=== PATIENT | male | born 1995 | race Caucasian/White ===

== ENCOUNTER 2018-09-20 21:08 | Emergency (ER) | payer OTHER ==
[2018-09-20] MEDS ORDERED: NS 1,000 ML IV ONE ×2 (21:30→23:00)
[2018-09-20] MEDS ORDERED: MORPHINE 2 MG/ML 1ML SYRINGE (J2270) IV PRN (21:30)
[2018-09-20 21:47] LABS: BASO % 0.5 % (0.0-1.0); EOS # 0.2 10^3/uL (0.0-0.50); EOS % 2.4 % (0.0-3.0); HEMATOCRIT 47.3 % (42.0-52.0); HEMOGLOBIN 16.8 g/dl (13.5-17.5); LYMPH # 2.5 10^3/uL (1.5-6.5); LYMPH % 34.5 % (24.0-44.0); MEAN CORPUSCULAR HEMOGLOBIN 30.9 pg (27.0-33.0); MEAN CORPUSCULAR HGB CONC 35.5 g/dl (32.0-36.5); MEAN CORPUSCULAR VOLUME 87.1 fl (80.0-96.0); MONO # 0.5 10^3/uL (0.0-0.8); MONO % 7.1 % (0.0-5.0); NEUTROPHILS # 4.1 10^3/uL (1.8-7.7); NEUTROPHILS % 55.2 % (36.0-66.0); PLATELET COUNT, AUTOMATED 234 10^3/uL (150-450); RED BLOOD COUNT 5.43 10^6/uL (4.30-6.10); WHITE BLOOD COUNT 7.4 10^3/uL (4.0-10.0)
[2018-09-20 21:57] LABS: INR 1.13; PROTHROMBIN TIME 14.7 SECONDS (12.1-14.4)
[2018-09-20 21:58] LABS: PARTIAL THROMBOPLASTIN TIME 32.6 SECONDS (25.4-37.6)
[2018-09-20 22:11] LABS: ALBUMIN 4.4 GM/DL (3.2-5.2); ALT/SGPT 27 U/L (12-78); AMYLASE 37 U/L (25-115); BILIRUBIN,DIRECT 0.2 MG/DL (0.0-0.2); BILIRUBIN,TOTAL 0.5 MG/DL (0.2-1.0); BLOOD UREA NITROGEN 15 MG/DL (7-18); CALCIUM LEVEL 9.1 MG/DL (8.5-10.1); CARBON DIOXIDE LEVEL 24 MEQ/L (21-32); CHLORIDE LEVEL 103 MEQ/L (98-107); CPK CREATINE PHOSPHOKINASE 227 U/L (39-308); CREATININE FOR GFR 0.98 MG/DL (0.70-1.30); ETHYL ALCOHOL (ETHANOL) 0.003 % (0.000-0.010); GLOMERULAR FILTRATION RATE > 60.0 (>60); GLUCOSE, FASTING 89 MG/DL (70-100); LIPASE 125 U/L (73-393); MB/CK RELATIVE INDEX 0.93 (< OR =4); SODIUM LEVEL 138 MEQ/L (136-145); TOTAL PROTEIN 7.8 GM/DL (6.4-8.2); TROPONIN I < 0.02 NG/ML (< 0.10)
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
[2018-09-20] MEDS ORDERED: LORazepam 2 MG/ML VIAL (J2060) IV STA (22:56)
[2018-09-20 23:26] LABS: AMPHETAMINES LEVEL URINE POSITIVE (NEGATIVE); BARBITURATES URINE NEGATIVE (NEGATIVE); BENZODIAZEPINES URINE NEGATIVE (NEGATIVE); CANNABINOIDS URINE POSITIVE (NEGATIVE); COCAINE METABOLITE URINE NEGATIVE (NEGATIVE); METHADONE URINE NEGATIVE (NEGATIVE); OPIATES URINE POSITIVE (NEGATIVE); PHENCYCLIDINE URINE NEGATIVE (NEGATIVE)
[2018-09-21 00:53] VITALS: BP 125/72
[2018-09-21] MEDS ORDERED: IBUP80TA PO (01:03)
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
== END 2018-09-21 01:12 | disposition home or self-care (01) ==
LOC: M ED 21:08
DX: M79.661 Pain in right lower leg (principal); V48.6XXA Car passenger injured in noncollision transport accident in traffic accident, initial encounter; Y92.410 Unspecified street and highway as the place of occurrence of the external cause
CPT/HCPCS: 70450; 71045; 72125; 73552; 73564; 73590; 73610; 73630; 80048; 80076; 80307; 81001; 82150; 82550; 82553; 83605; 83690; 84484; 85025; 85610; 85730; 86850; 86900; 86901; 93041; 94760; 96361; 96374; 96375; 99285; G0480; J2060; J2270

== ENCOUNTER 2020-01-06 15:03 | Emergency (ER) | payer OTHER ==
[~2020-01-06] VITALS: Ht 170.2 cm; Wt 54.5 kg
[~2020-01-06 15:03] MED LIST: IBUP80TA PO
[2020-01-06] MEDS ORDERED: ACET25TA12 PO (15:16)
[2020-01-06 15:39] LABS: BASO # 0.1 10^3/uL (0.0-0.2); BASO % 0.8 % (0.0-1.0); EOS # 0.4 10^3/uL (0.0-0.5); EOS % 5.3 % (0.0-3.0); HEMATOCRIT 45.8 % (42.0-52.0); HEMOGLOBIN 15.5 g/dl (13.5-17.5); LYMPH # 2.2 10^3/uL (1.5-5.0); LYMPH % 32.6 % (24.0-44.0); MEAN CORPUSCULAR HEMOGLOBIN 30.8 pg (27.0-33.0); MEAN CORPUSCULAR HGB CONC 33.8 g/dl (32.0-36.5); MEAN CORPUSCULAR VOLUME 91.1 fl (80.0-96.0); MONO # 0.5 10^3/uL (0.0-0.8); MONO % 8.1 % (0.0-5.0); NEUTROPHILS # 3.5 10^3/uL (1.5-8.5); NEUTROPHILS % 52.9 % (36.0-66.0); PLATELET COUNT, AUTOMATED 224 10^3/uL (150-450); RED BLOOD COUNT 5.03 10^6/uL (4.30-6.10); WHITE BLOOD COUNT 6.6 10^3/uL (4.0-10.0)
[2020-01-06] MEDS ORDERED: LIDOCAINE W/EPINEPHRINE 1% 20ML VIAL SC ONE (15:45)
[2020-01-06] MEDS ORDERED: BOOSTRIX/ADACEL VACCINE (DIPHTH/PERTUSS/ACELL/TETANUS) 0.5ML SYR IM ONE (15:45)
[2020-01-06 16:11] LABS: ACETAMINOPHEN LEVEL < 2.0 UG/ML (10.0-30.0); ALBUMIN 4.2 GM/DL (3.2-5.2); ALT/SGPT 29 U/L (12-78); BILIRUBIN,DIRECT < 0.1 MG/DL (0.0-0.2); BILIRUBIN,TOTAL 0.2 MG/DL (0.2-1.0); BLOOD UREA NITROGEN 14 MG/DL (7-18); CALCIUM LEVEL 8.7 MG/DL (8.5-10.1); CARBON DIOXIDE LEVEL 30 MEQ/L (21-32); CHLORIDE LEVEL 103 MEQ/L (98-107); CPK CREATINE PHOSPHOKINASE 131 U/L (39-308); CREATININE FOR GFR 0.98 MG/DL (0.70-1.30); ETHYL ALCOHOL (ETHANOL) < 0.003 % (0.000-0.010); GLOMERULAR FILTRATION RATE > 60.0 (>60); GLUCOSE, FASTING 124 MG/DL (70-100); POTASSIUM SERUM 3.7 MEQ/L (3.5-5.1); SALICYLATE LEVEL < 1.7 MG/DL (5.0-30.0); SODIUM LEVEL 139 MEQ/L (136-145); TOTAL PROTEIN 7.3 GM/DL (6.4-8.2)
[2020-01-06] MEDS ORDERED: NS 1,000 ML IV ONE (17:00)
[2020-01-06 17:21] LABS: AMPHETAMINES LEVEL URINE POSITIVE (NEGATIVE); BARBITURATES URINE NEGATIVE (NEGATIVE); BENZODIAZEPINES URINE NEGATIVE (NEGATIVE); CANNABINOIDS URINE POSITIVE (NEGATIVE); COCAINE METABOLITE URINE NEGATIVE (NEGATIVE); METHADONE URINE NEGATIVE (NEGATIVE); OPIATES URINE NEGATIVE (NEGATIVE); PHENCYCLIDINE URINE NEGATIVE (NEGATIVE)
--- NOTE | 2020-01-06 17:24 | REP ---
LEFT HAND, FOUR VIEWS: Four views left hand performed. No acute fracture or dislocation is seen. No radiopaque foreign body is seen in the soft tissues. There is bandaging material in the region of the 1st digit. IMPRESSION: No fracture or radiopaque foreign body. Electronically Signed by Ángel Lindo MD 01/07/2020 12:54 P
[2020-01-06 22:09] VITALS: BP 150/80
--- NOTE | 2020-01-07 22:07 | ECGEPIP ---
[facility] - ED Test Date: 2020-01-06 Pat Name: NELLA CARREON Department: Room: - Gender: Male [employer] Office Worker: : 1995 Requested By: ROBBIN Albarado Order Number: [id number] Reading MD: Israel Miramontes Measurements Intervals [place] Rate: 89 P: 71 GA: 162 QRS: 40 QRSD: 92 T: 41 QT: 344 QTc: 419 Interpretive Statements SINUS RHYTHM INCOMPLETE RIGHT BUNDLE BRANCH BLOCK NO PRIORS FOR COMPARISON Electronically Signed on 01-07-2020 22:07:07 EDT by Israel Miramontes
== END 2020-01-06 22:11 | disposition home or self-care (01) ==
LOC: M ED 15:03
DX: T39.1X1A Poisoning by 4-Aminophenol derivatives, accidental (unintentional), initial encounter (principal); Y92.098 Other place in other non-institutional residence as the place of occurrence of the external cause; S61.412A Laceration without foreign body of left hand, initial encounter; W29.0XXA Contact with powered kitchen appliance, initial encounter; F15.10 Other stimulant abuse, uncomplicated; Z79.899 Other long term (current) drug therapy
CPT/HCPCS: 12002; 36415; 73130; 80048; 80076; 80307; 82550; 84443; 85025; 90471; 90715; 93005; 93041; 94760; 99285; G0480

== ENCOUNTER 2022-07-24 16:02 | Emergency (ER) | payer MEDICAID, OTHER ==
[~2022-07-24] VITALS: Ht 167.6 cm; Wt 67.4 kg
[~2022-07-24 16:02] MED LIST changes: +ACET25TA12 PO
[2022-07-24] MEDS ORDERED: PRAZ2CAP (16:27)
[2022-07-24] MEDS ORDERED: MELO7.5T35 (16:27)
[2022-07-24] MEDS ORDERED: HYDR1CAP25 (16:27)
[2022-07-24] MEDS ORDERED: NALT50TA4 (16:27)
[2022-07-24] MEDS ORDERED: FLUO20CA22 (16:27)
[2022-07-24 22:03] LABS: BASO % 0.3 % (0.0-1.0); EOS % 0.2 % (0.0-3.0); HEMATOCRIT 45.5 % (42.0-52.0); HEMOGLOBIN 15.9 g/dl (13.5-17.5); LYMPH # 2.5 10^3/uL (1.5-5.0); LYMPH % 22.7 % (24.0-44.0); MEAN CORPUSCULAR HEMOGLOBIN 31.5 pg (27.0-33.0); MEAN CORPUSCULAR HGB CONC 34.9 g/dl (32.0-36.5); MEAN CORPUSCULAR VOLUME 90.1 fl (80.0-96.0); MONO # 1.3 10^3/uL (0.0-0.8); NEUTROPHILS % 64.6 % (36.0-66.0); PLATELET COUNT, AUTOMATED 199 10^3/uL (150-450); RED BLOOD COUNT 5.05 10^6/uL (4.30-6.10); WHITE BLOOD COUNT 10.8 10^3/uL (4.0-10.0)
[2022-07-24 23:27] LABS: RSV AMPLIFICATION NEGATIVE (NEGATIVE)
[2022-07-24] MEDS ORDERED: ONDANSETRON 4MG 2ML VIAL IV ONE (23:30)
[2022-07-24] MEDS ORDERED: KETOROLAC 30 MG/ML 1ML VIAL IV ONE (23:30)
[2022-07-24] MEDS ORDERED: GI COCKTAIL 50ML BTL(HYOSCYAMINE/MAALOX/LIDOCAINE VISCOUS)(1:3:1) PO ONE (23:30)
[2022-07-25] MEDS ORDERED: ONDA4TAB6 PO (00:04)
[2022-07-25] MEDS ORDERED: LIDO2SOL17 PO (00:04)
[2022-07-25] MEDS ORDERED: OSEL75CA PO (00:04)
[2022-07-25] MEDS ORDERED: OSELTAMIVIR PHOSPHATE 75 MG CAP (TAMIFLU) PO ONE (00:10)
[2022-07-25 00:13] VITALS: BP 119/75
== END 2022-07-25 00:19 | disposition home or self-care (01) ==
LOC: M ED 16:02
DX: J09.X2 Influenza due to identified novel influenza A virus with other respiratory manifestations (principal); F17.200 Nicotine dependence, unspecified, uncomplicated; F19.11 Other psychoactive substance abuse, in remission; Z86.19 Personal history of other infectious and parasitic diseases
CPT/HCPCS: 85025; 87631; 87880; 96374; 96375; 99284; J1885; J2405

== ENCOUNTER → 2022-10-12 | Outpatient (CLI) | payer OTHER ==
[~2022-10-12] MED LIST changes: +FLUO20CA22; +HYDR1CAP25; +LIDO15SO4 PO; +MELO7.5T35; +NALT50TA4; +ONDA4TAB6 PO; +OSEL75CA PO; +PRAZ2CAP
[2022-10-12 13:45] LABS: BASO % 0.6 % (0.0-1.0); EOS # 0.2 10^3/uL (0.0-0.5); EOS % 3.3 % (0.0-3.0); HEMOGLOBIN 14.8 g/dl (13.5-17.5); LYMPH # 2.7 10^3/uL (1.5-5.0); LYMPH % 39.4 % (24.0-44.0); MEAN CORPUSCULAR HEMOGLOBIN 30.5 pg (27.0-33.0); MEAN CORPUSCULAR HGB CONC 33.6 g/dl (32.0-36.5); MEAN CORPUSCULAR VOLUME 90.5 fl (80.0-96.0); MONO # 0.9 10^3/uL (0.0-0.8); MONO % 13.2 % (2.0-8.0); NEUTROPHILS % 43.2 % (36.0-66.0); PLATELET COUNT, AUTOMATED 255 10^3/uL (150-450); RED BLOOD COUNT 4.86 10^6/uL (4.30-6.10); WHITE BLOOD COUNT 6.9 10^3/uL (4.0-10.0)
[2022-10-12 14:24] LABS: ALBUMIN 4.2 G/DL (3.2-5.2); ALKALINE PHOSPHATASE 94 U/L (46-116); ALT/SGPT 185 U/L (7.0-40); AST/SGOT 94 U/L (<34); BILIRUBIN,TOTAL 0.7 MG/DL (0.3-1.2); BLOOD UREA NITROGEN 16 MG/DL (9-23); CALCIUM LEVEL 9.4 MG/DL (8.5-10.1); CARBON DIOXIDE LEVEL 30 MMOL/L (20-31); CHLORIDE LEVEL 104 MMOL/L (98-107); CREATININE FOR GFR 1.07 MG/DL (0.70-1.30); GLOMERULAR FILTRATION RATE > 60.0 (>60); GLUCOSE, FASTING 102 MG/DL (60-100); PHOSPHORUS LEVEL 4.1 MG/DL (2.5-4.9); POTASSIUM SERUM 4.1 MMOL/L (3.5-5.1); SODIUM LEVEL 140 MMOL/L (136-145)
[2022-10-12 14:54] LABS: HEPATITIS B CORE ANTIBODY IGM NEGATIVE (NEGATIVE); HEPATITIS B SURFACE ANTIGEN NEGATIVE (NEGATIVE); HEPATITIS C VIRUS ABY INDEX > 11.0 INDEX (<0.8)
[2022-10-13 23:07] LABS: HEPATITIS C QUANTITATION 1440000 IU/mL (.)
== END ==
LOC: M LAB 12:43
PROVIDERS: ATTEND Physician Assistant
DX: Z02.2 Encounter for examination for admission to residential institution (principal); B19.20 Unspecified viral hepatitis C without hepatic coma

== ENCOUNTER → 2022-11-22 | Outpatient (CLI) | payer OTHER | LOC: M RAD 12:50 | PROVIDERS: ATTEND Physician Assistant | DX: R22.33 Localized swelling, mass and lump, upper limb, bilateral (principal) ==

== ENCOUNTER 2023-04-24 22:10 | Emergency (ER) | payer OTHER ==
[~2023-04-24] VITALS: Ht 167.6 cm; Wt 79.9 kg
[~2023-04-24 22:10] MED LIST changes: +LIDO15SO PO; -LIDO15SO4 PO
[2023-04-24 22:12] VITALS: BP 147/97; TEMP 98; O2SAT 97
[2023-04-25] MEDS ORDERED: IBUPROFEN 800 MG TAB PO ONE (00:35)
== END 2023-04-25 00:50 | disposition home or self-care (01) ==
LOC: M ED 22:10
DX: S43.402A Unspecified sprain of left shoulder joint, initial encounter (principal); V48.6XXA Car passenger injured in noncollision transport accident in traffic accident, initial encounter; F41.9 Anxiety disorder, unspecified; F32.A Depression, unspecified; F17.200 Nicotine dependence, unspecified, uncomplicated; Z79.899 Other long term (current) drug therapy

== ENCOUNTER 2023-08-13 20:21 | Emergency (ER) | payer OTHER, SELFPAY ==
[~2023-08-13] VITALS: Ht 167.6 cm; Wt 79.8 kg
[2023-08-13 20:21] VITALS: BP 150/98; TEMP 97.9; O2SAT 97
[2023-08-13] MEDS ORDERED: IBUP80TA PO (23:47)
[2023-08-14] MEDS ORDERED: IBUP80TA PO (00:03)
== END 2023-08-14 00:15 | disposition home or self-care (01) ==
LOC: M ED 20:21
DX: M65.4 Radial styloid tenosynovitis [de Quervain] (principal); F41.9 Anxiety disorder, unspecified; F32.A Depression, unspecified; F17.200 Nicotine dependence, unspecified, uncomplicated; Z79.83 Long term (current) use of bisphosphonates; Z79.891 Long term (current) use of opiate analgesic; Z79.899 Other long term (current) drug therapy

== ENCOUNTER 2024-02-16 09:35 | Emergency (ER) | payer OTHER, SELFPAY ==
[~2024-02-16] VITALS: Ht 167.6 cm; Wt 65.5 kg
[~2024-02-16 09:35] MED LIST changes: +FLUO-365; -FLUO20CA22; -LIDO15SO PO; +LIDO15SO8 PO; +ONDA-282 PO; -ONDA4TAB6 PO
[2024-02-16 09:36] VITALS: BP 133/91; TEMP 97.3; O2SAT 99
== END 2024-02-16 10:38 | disposition left against medical advice (07) ==
LOC: M ED 09:35
DX: Z53.21 Procedure and treatment not carried out due to patient leaving prior to being seen by health care provider (principal)

== ENCOUNTER → 2024-09-09 | Outpatient (CLI) | payer OTHER | LOC: M SOG 13:13 | PROVIDERS: ATTEND Physician Assistant | DX: M25.552 Pain in left hip (principal); M91.42 Coxa magna, left hip ==

== ENCOUNTER → 2024-09-21 | Outpatient (CLI) | payer OTHER | LOC: M LAB 09:21 | PROVIDERS: ATTEND Neuromusculoskeletal Medicine, Sports Medicine | DX: M87.852 Other osteonecrosis, left femur (principal); M16.12 Unilateral primary osteoarthritis, left hip | CPT/HCPCS: 36415; G0480 ==

== ENCOUNTER 2024-10-05 13:25 | Emergency (ER) | payer OTHER ==
[~2024-10-05] VITALS: Ht 167.6 cm; Wt 84.3 kg
[2024-10-05 17:15] VITALS: BP 129/82; TEMP 97.7; O2SAT 97
== END 2024-10-05 17:40 | disposition home or self-care (01) ==
LOC: M ED 13:25
DX: S61.011A Laceration without foreign body of right thumb without damage to nail, initial encounter (principal); W27.4XXA Contact with kitchen utensil, initial encounter; F41.9 Anxiety disorder, unspecified; F32.A Depression, unspecified; F17.200 Nicotine dependence, unspecified, uncomplicated; Y92.000 Kitchen of unspecified non-institutional (private) residence as the place of occurrence of the external cause; Y93.89 Activity, other specified; Y99.9 Unspecified external cause status; Z79.1 Long term (current) use of non-steroidal anti-inflammatories (NSAID)

== ENCOUNTER → 2024-10-06 | Outpatient (CLI) | payer OTHER ==
[2024-10-09 08:32] LABS: HCV RNA log10 6.67 Log IU/mL (NOT DETECTED)
== END ==
LOC: M LAB 16:23
PROVIDERS: ATTEND Neuromusculoskeletal Medicine, Sports Medicine
DX: M87.852 Other osteonecrosis, left femur (principal)

== ENCOUNTER → 2024-10-08 | Outpatient (CLI) | payer OTHER ==
[2024-10-08 12:42] LABS: BASO % 0.8 % (0.0-1.0); EOS # 0.3 10^3/uL (0.0-0.5); EOS % 4.8 % (0.0-3.0); HEMATOCRIT 43.5 % (42.0-52.0); HEMOGLOBIN 15.1 g/dl (13.5-17.5); LYMPH # 2.5 10^3/uL (1.5-5.0); LYMPH % 47.6 % (24.0-44.0); MEAN CORPUSCULAR HEMOGLOBIN 31.7 pg (27.0-33.0); MEAN CORPUSCULAR HGB CONC 34.7 g/dl (32.0-36.5); MEAN CORPUSCULAR VOLUME 91.4 fl (80.0-96.0); MONO # 0.5 10^3/uL (0.0-0.8); MONO % 10.1 % (2.0-8.0); NEUTROPHILS # 1.9 10^3/uL (1.5-8.5); NEUTROPHILS % 36.5 % (36.0-66.0); PLATELET COUNT, AUTOMATED 217 10^3/uL (150-450); RED BLOOD COUNT 4.76 10^6/uL (4.30-6.10); WHITE BLOOD COUNT 5.3 10^3/uL (4.0-10.0)
[2024-10-08 12:56] LABS: INR 0.99; PROTHROMBIN TIME 13.4 SECONDS (12.5-14.5)
[2024-10-08 13:16] LABS: HEPATITIS B SURFACE ANTIBODY POSITIVE (POSITIVE)
[2024-10-08 13:17] LABS: ALKALINE PHOSPHATASE 98 U/L (40-129); ALT/SGPT 179 U/L (7.0-40); AST/SGOT 68 U/L (<34); BILIRUBIN,TOTAL 0.5 MG/DL (0.3-1.2); BLOOD UREA NITROGEN 14 MG/DL (9-23); CALCIUM LEVEL 9.5 MG/DL (8.5-10.1); CARBON DIOXIDE LEVEL 26 MMOL/L (20-31); CHLORIDE LEVEL 108 MMOL/L (98-107); CREATININE FOR GFR 0.92 MG/DL (0.70-1.30); GLOMERULAR FILTRATION RATE > 60.0 (>60); GLUCOSE, FASTING 102 MG/DL (60-100); SODIUM LEVEL 140 MMOL/L (136-145); TOTAL PROTEIN 7.1 G/DL (5.7-8.2)
[2024-10-08 13:29] LABS: HEPATITIS B SURFACE ANTIGEN NEGATIVE (NEGATIVE)
[2024-10-08 13:41] LABS: HIV 1&2 SCREEN NEGATIVE (NEGATIVE)
== END ==
LOC: M LAB 11:12
PROVIDERS: ATTEND Emergency Medicine
DX: B18.2 Chronic viral hepatitis C (principal)

== ENCOUNTER → 2025-01-14 | Outpatient (REF) | payer OTHER | LOC: M LAB REF 13:26 | PROVIDERS: ATTEND Neuromusculoskeletal Medicine, Sports Medicine | DX: M16.12 Unilateral primary osteoarthritis, left hip (principal) ==

== ENCOUNTER 2025-03-13 02:39 | Emergency (ER) | payer OTHER ==
[~2025-03-13] VITALS: Ht 167.6 cm; Wt 77.8 kg
[~2025-03-13 02:39] MED LIST changes: +BUPR-766 PO; +MIRT-11 PO; +PRAZ5CAP PO; +QUET100T2 PO
[2025-03-13] MEDS ORDERED: ACETAMINOPHEN 500 MG TAB PO ONE (04:00)
[2025-03-13 04:56] LABS: BASO # 0.0 10^3/uL (0.0-0.2); BASO % 0.7 % (0.0-1.0); EOS # 0.2 10^3/uL (0.0-0.5); EOS % 3.0 % (0.0-3.0); LYMPH # 2.4 10^3/uL (1.5-5.0); LYMPH % 42.3 % (24.0-44.0); MONO # 0.6 10^3/uL (0.0-0.8); MONO % 10.8 % (2.0-8.0); NEUTROPHILS # 2.5 10^3/uL (1.5-8.5); NEUTROPHILS % 43.2 % (36.0-66.0); PLATELET COUNT, AUTOMATED 198 10^3/uL (150-450)
[2025-03-13] MEDS: ONDANSETRON 4MG 2ML VIAL IV ONE (04:59)
[2025-03-13] MEDS: PANTOPRAZOLE 40MG VIAL IV ONE (04:59)
[2025-03-13] MEDS: ACETAMINOPHEN *IV* 1,000 MG in IV 1 EA IV ONE (05:00)
[2025-03-13] MEDS: FAMOTIDINE 20 MG/2 ML VIAL IVP ONE (05:10)
[2025-03-13 05:29] LABS: ALT/SGPT 24.0 U/L (7.0-40); AST/SGOT 30.0 U/L (<34); CALCIUM LEVEL 9.6 MG/DL (8.5-10.1); CARBON DIOXIDE LEVEL 29.0 MMOL/L (20-31); CHLORIDE LEVEL 102.0 MMOL/L (98-107); CREATININE FOR GFR 1.14 MG/DL (0.70-1.30); GLOMERULAR FILTRATION RATE 88.7 (>60); POTASSIUM SERUM 3.3 MMOL/L (3.5-5.1); SODIUM LEVEL 144.0 MMOL/L (136-145)
[2025-03-13] MEDS ORDERED: ISOVUE-370 76% 100 ML VIAL As Ordered ONE (05:54)
[2025-03-13] MEDS: POTASSIUM CHLORIDE 10MEQ SR TABLET PO ONE (06:35)
[2025-03-13 06:36] LABS: MAGNESIUM LEVEL 2.1 MG/DL (1.8-2.4)
[2025-03-13 09:45] VITALS: O2SAT 97
[2025-03-13 09:46] VITALS: BP 113/70
[2025-03-13] MEDS ORDERED: PROT1TAB2 PO (09:51)
[2025-03-13] MEDS ORDERED: CARA1TAB6 PO (09:51)
[2025-03-13 10:06] VITALS: TEMP 97.6
== END 2025-03-13 10:07 | disposition home or self-care (01) ==
LOC: M ED 02:39
DX: K22.5 Diverticulum of esophagus, acquired (principal); B18.2 Chronic viral hepatitis C
CPT/HCPCS: 36415; 71045; 74160; 80048; 80076; 83690; 83735; 85014; 85018; 85025; 93005; 93041; 96365; 96375; 99285; J0131; J1308; J2405; J2470; Q9967